=== PATIENT | female | born 1940 | race Caucasian/White ===

== ENCOUNTER 2016-07-22 16:21 | Emergency (ER) | payer MEDICARE ==
[2016-07-22] MEDS ORDERED: Lasix 40 MG/4 ML ONE (16:23)
--- NOTE | 2016-07-22 16:30 | ERPHSYRPT ---
- History of Present Illness Time Seen by Provider: 07/22/16 16:24 Source: patient, EMS Exam Limitations: other (difficulty talking with CPAP mask on.) Physician History: The patient is a 76-year-old female brought in by EMS from home at which time she was suffering respiratory distress. She has episodes of respiratory distress from lung cancer. She takes multiple radiation treatments weekly for lung cancer and had just arrived home after radiation treatment today. She suddenly became short of breath. EMS placed her on BiPAP and gave her Solu- Medrol. Son told EMS that her O2 sat was in the 70s% range and he was unable to increase it with supplemental O2. She is awake and can talk but is difficult to interview with the BiPAP mask on. She also states she has congestive heart failure. Timing/Duration: hour(s) (1) Activities at Onset: rest Severity of Dyspnea-Max: severe Severity of Dyspnea-Current: moderate Possible Cause: frequent episodes Modifying Factors: Improves With: activity Associated Symptoms: denies symptoms Allergies/Adverse Reactions: nitrofurantoin [From Macrobid] Adverse Reaction (Mild, Verified 07/22/16 16:32) nausea, hives nitrofurantoin macrocrystalline [From Macrobid] Adverse Reaction (Mild, Verified 07/22/16 16:32) nausea, hives Penicillins Adverse Reaction (Mild, Verified 07/22/16 16:32) hives, nausea sulfamethoxazole [From Bactrim] Adverse Reaction (Mild, Verified 07/22/16 16:32) nausea hives trimethoprim [From Bactrim] Adverse Reaction (Mild, Verified 07/22/16 16:32) nausea hives Home Medications: Unobtainable [Unobtainable] 07/22/16 [History] Hx Tetanus, Diphtheria Vaccination/Date Given: Yes Hx Influenza Vaccination/Date Given: Yes Hx Pneumococcal Vaccination/Date Given: Yes - Review of Systems Constitutional: No Fever, No Chills Eyes: No Symptoms Ears, Nose, & Throat: No Symptoms Respiratory: Dyspnea Cardiac: No Chest Pain, No Edema, No Syncope Abdominal/Gastrointestinal: No Abdominal Pain, No Nausea, No Vomiting, No Diarrhea Genitourinary Symptoms: No Dysuria Musculoskeletal: No Back Pain, No Neck Pain Skin: No Rash Neurological: No Dizziness, No Focal Weakness, No Sensory Changes Psychological: No Symptoms Endocrine: No Symptoms Hematologic/Lymphatic: No Symptoms Immunological/Allergic: No Symptoms All Other Systems: Reviewed and Negative - Past Medical History Pertinent Past Medical History: Yes Neurological History: Migraines, Peripheral Neuropathy ENT History: Cataracts Cardiac History: Hypertension, Other Respiratory History: Sleep Apnea Endocrine Medical History: Hypothyroidism Musculoskeletal History: Fibromyalgia, Osteoarthritis, Rheumatoid Arthritis GI Medical History: Colitis, GERD History: Other Psycho-Social History: Anxiety, Depression Female Reproductive Disorders: No Pertinent History Other Medical History: heart murmur- rheumatic fever. some slight kidney failure - Past Surgical History Past Surgical History: Yes Neuro Surgical History: No Pertinent History Cardiac: Cardiac Catheterization Respiratory: No Pertinent History Gastrointestinal: Cholecystectomy Genitourinary: No Pertinent History Musculoskeletal: Orthopedic Surgery Female Surgical History: Hysterectomy Other Surgical History: back surgery - Social History Smoking Status: Former smoker Exposure to second hand smoke: No Drug Use: none Patient Lives Alone: No - Nursing Vital Signs Nursing Vital Signs: Initial Vital Signs Temperature 104.0 F Temperature Source Core Pulse Rate 124 Respiratory Rate 22 Blood Pressure [Left Arm] 98/54 Pain Intensity 0 - Physical Exam General Appearance: mild distress Eye Exam: PERRL/EOMI Ears, Nose, Throat Exam: hearing grossly normal Neck Exam: normal inspection, supple Respiratory Exam: crackles/rales, rhonchi Cardiovascular/Chest Exam: normal heart sounds, regular rate/rhythm Abdominal/Gastrointestinal Exam: soft, No tenderness, No distention, No mass Rectal Exam: not done Extremity Exam: non-tender, normal range of motion, normal inspection, no calf tenderness, no pedal edema Neurologic Exam: alert, oriented x 3, cooperative, 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 nml as tested, sensation nml, No motor deficits Skin Exam: normal color, warm, No dry SpO2 Interpretation: O2 applied Oxygen Delivery: BiPap - Radiology Exams Chest X-ray Interpretation: Interpreted by me, Infiltrates Ordered Tests: Active Orders 24 hr Category Date Time Status Chisel Grinder STAT Care 07/22/16 16:32 Active Catheter-[place] STAT Care 07/22/16 16:32 Active IV Insertion STAT Care 07/22/16 16:32 Active IV Insertion-2nd Peripheral STAT Care 07/22/16 16:55 Active Oxygen-ED Only NON-REBREATHER 100% Care 07/22/16 16:34 Active Pulse Oximetry (ED) STAT Care 07/22/16 16:32 Active Pulse Oximetry (ED) STAT Care 07/22/16 16:33 Active CHEST 1 VIEW (PORTABLE) Stat Exams 07/22/16 16:33 Taken ABG [ARTERIAL BLOOD GASES] Urgent Lab 07/22/16 16:17 Completed CBC W DIFF Stat Lab 07/22/16 16:45 Completed CMP Stat Lab 07/22/16 16:45 Received NT PRO BNP Stat Lab 07/22/16 16:45 Received TROPONIN Stat Lab 07/22/16 16:45 Received UA W/ MICROSCOPIC Stat Lab 07/22/16 16:45 Completed BiPap/CPAP Assessment STAT RT 07/22/16 16:33 Active Medication Summary Discontinued Medications Generic Name Dose Route Start Last Admin Trade Name Freq PRN Reason Stop Dose Admin Acetaminophen 650 mg 07/22/16 16:57 07/22/16 16:58 [place] 650 Mg TX 07/22/16 16:58 650 mg STAT ONE Administration Acetaminophen Confirm 07/22/16 16:54 Fever[place] 650 Mg Administered 07/22/16 16:55 Dose 650 mg .ROUTE .STK-MED ONE Furosemide Confirm 07/22/16 16:23 Lasix 40 Mg/4 Ml Administered 07/22/16 16:24 Dose 40 mg .ROUTE .STK-MED ONE Furosemide 40 mg 07/22/16 16:32 07/22/16 16:35 Lasix 40 Mg/4 Ml IV 07/22/16 16:33 40 mg STAT ONE Administration Lab/Rad Data: Laboratory Result Diagrams 07/22/16 16:45 Laboratory Results 07/22/16 07/22/16 07/22/16 Range/Units 16:45 16:45 16:17 WBC 8.5 (4.0-10.5) K/mm3 RBC 4.27 (4.1-5.4) M/mm3 Hgb 12.0 (12.0-16.0) gm/dl Hct 38.9 (35-47) % MCV 91.1 (78-100) fl MCH 28.1 (26-32) pg MCHC 30.8 L (32-36) g/dl RDW 21.0 H (11.5-14.0) % Plt Count 208 (150-450) K/mm3 MPV 13.0 H (6-9.5) fl Gran % 82.3 H (36.0-66.0) % Lymphocytes % 10.2 L (24.0-44.0) % Monocytes % 6.9 (0.0-12.0) % Eosinophils % 0.4 (0.00-5.0) % Basophils % 0.2 (0.0-0.4) % Basophils # 0.02 (0-0.4) Puncture Site RIGHT BRACHIAL pCO2 44 (35-45) mmHg pO2 161 H* (75-100) mmHg Base Excess 9.1 H (-2.0-2.0) O2 Saturation 95.3 (94-100) g/dF ABG pH 7.49 H (7.35-7.45) ABG HCO3 33.5 H* (22-28) ABG O2 Sat (Measured) 98.9 (95-100) % Ar Test NOT APPLICABLE A-a Gradient 497 a/A Ratio 0.24 Hemoglobin 11.5 Carboxyhemoglobin 1.8 (0.0-6.9) % THgb Methemoglobin 1.8 H (1.4-1.5) % Potassium 5.2 H (3.5-5.1) Temperature 37.0 C POC O2 Flow Rate 100 % Vent Mode BiPAP Inspiratory BiPAP 12 Expiratory BiPAP 6 Ur Collection Type CATH Urine Color YELLOW (YELLOW) Urine Appearance CLEAR (CLEAR) Urine pH 8.5 (5-6) Ur Specific [place] 1.015 (1.005-1.025) Urine Protein NEGATIVE (Negative) Urine Glucose (UA) NEGATIVE (NEGATIVE) mg/dL Urine Ketones NEGATIVE (NEGATIVE) Urine Nitrite NEGATIVE (NEGATIVE) Urine Bilirubin NEGATIVE (NEGATIVE) Urine Urobilinogen 2 (0-1) mg/dL Urine WBC (Auto) TRACE (NEGATIVE) Urine RBC (Auto) NEGATIVE (0-5) Victorino/ul Urine Microscopic RBC 2-5 (0-2) /HPF Urine Microscopic WBC 15-25 (0-5) /HPF Ur Epithelial Cells MODERATE (FEW) /HPF Urine Bacteria FEW (NEGATIVE) /HPF Specimen Received - Progress Progress: improved Air Movement: fair Counseled pt/family regarding: lab results, diagnosis, rad results - Departure Time of Disposition: 18:08 Departure Disposition: Transfer (Transfer to [facility] per Dr Jenkins) Clinical Impression: Pneumonia Condition: Fair Critical Care Time: Yes Critical Care Time(excluding separately billable procedures): 30-74 minutes
[2016-07-22] MEDS ORDERED: Lasix 40 MG/4 ML IV ONE (16:32)
[2016-07-22 16:39] LABS: A-aADO2 497; ARTERIAL BLD GAS O2 SATURATION 98.9 % (95-100); ARTERIAL BLOOD GAS BASE EXCESS 9.1 (-2.0-2.0); ARTERIAL BLOOD GAS FIO2 100 %; ARTERIAL BLOOD GAS PO2 161 mmHg (75-100); ARTERIAL BLOOD GAS pH 7.49 (7.35-7.45); BIPAP(E) 6; BIPAP(I) 12
[2016-07-22] MEDS ORDERED: FEVERALL 650 MG ONE (16:54)
[2016-07-22] MEDS ORDERED: FEVERALL 650 MG PR ONE (16:57)
[2016-07-22 17:15] LABS: BASOPHIL % 0.2 % (0.0-0.4); Eosinophil % 0.4 % (0.00-5.0); Granulocytes % 82.3 % (36.0-66.0); Lymphocytes % 10.2 % (24.0-44.0); Mean Cell Volume 91.1 fl (78-100); Mean Corpuscular Hemoglobin 28.1 pg (26-32); Monocytes % 6.9 % (0.0-12.0); Platelet Count 208 K/mm3 (150-450); Red Blood Count 4.27 M/mm3 (4.1-5.4); White Blood Count 8.5 K/mm3 (4.0-10.5)
[2016-07-22 17:18] LABS: Collection Type CATH
[2016-07-22 17:19] LABS: Ph 8.5 (5-6)
[2016-07-22 17:20] LABS: COMPLETE URINE MICROSCOPIC? YES
[2016-07-22 17:49] VITALS: O2SAT 100
[2016-07-22 17:50] LABS: Bacteria FEW /HPF (NEGATIVE); Epithelial Cells MODERATE /HPF (FEW); WBC 15-25 /HPF (0-5)
[2016-07-22] MEDS ORDERED: LEVOFLOXACIN 750MG/150ML D5W 150 ML IV ONE ×2 (18:10→18:12)
[2016-07-22 18:17] LABS: ALKALINE PHOSPHATASE 42 U/L (46-116); ANION GAP 11.6 MEQ/L (5-15); BILIRUBIN,TOTAL 1.2 mg/dL (0.2-1.0); BLOOD UREA NITROGEN 29 mg/dL (9-20); CHLORIDE 100 mEq/L (98-107); Carbon Dioxide 30.6 mEq/L (21-32); Glucose 135 MG/DL (70-110); Potassium 4.9 mEq/L (3.5-5.1); SGOT/AST 23 U/L (15-37); SGPT/ALT 6 U/L (12-78); SODIUM 137 mEq/L (136-145); TROPONIN < 0.017 ng/ml (0.000-0.056); Total Protein 7.1 gm/dL (6.4-8.2)
[2016-07-22 18:18] VITALS: BP 100/63; PULSE 120
--- NOTE | 2016-07-23 08:34 | XRAY ---
Indication: Short of breath. Comparison: May 18, 2011. Portable apical lordotic chest demonstrates new bilateral infiltrates/atelectasis with small bibasilar effusions. Heart remains enlarged. Bony thorax intact.
== END 2016-07-22 18:35 | disposition short-term general hospital (02) ==
LOC: ED 16:21
DX: J18.9 Pneumonia, unspecified organism (principal)
CPT/HCPCS: 93041; 96374; 99291; 51702; 87040; 81000; 36415; 83880; 85025; 80053; 84484; 82803; 82375; A9270; 36000; 36600; 71010; 94002; 99284; 99285; J1940; J1956